=== PATIENT | male | born 1960 | race Caucasian/White ===

== ENCOUNTER 2019-12-12 16:01 | Inpatient (IN) | payer BC ==
[~2019-12-12] VITALS: Ht 170.2 cm; Wt 116.1 kg
--- NOTE | 2019-12-12 16:30 | NUR ---
BIB [facility] 89 FROM CLINIC, FELL ON HIS KNEES ON HIS WAY OUT OF THE CLINIC. PATIENT A/OX4, BREATHING EVEN AND UNLABORED, NO SOB NOTED. C/O FEELING WEAK. NEEDS ATTENDED, ATTACHED TO THE JAVA SECURITY ENGINEER.
[2019-12-12] MEDS ORDERED: ONDANSETRON HCL/PF 4 MG/2 ML VIAL IVP ONE (17:00)
[2019-12-12] MEDS ORDERED: IV NS 0.9% 1,000 ML BAG IV ONE (17:00)
[2019-12-12] MEDS ORDERED: MORPHINE SULFATE INJ 2 MG/ML DISP.SYRIN IM ONE (17:00)
[2019-12-12] MEDS ORDERED: ONDANSETRON HCL/PF 4 MG/2 ML VIAL ONE (17:18)
[2019-12-12] MEDS ORDERED: MORPHINE SULFATE INJ 2 MG/ML DISP.SYRIN ONE (17:19)
[2019-12-12] MEDS ORDERED: MORPHINE SULFATE INJ 4 MG/ML DISP.SYRIN ONE ×3 (17:19→21:23)
[2019-12-12] MEDS ORDERED: ONDA8TAB65 PO (17:29)
[2019-12-12] MEDS ORDERED: METH10TA2 PO (17:29)
[2019-12-12] MEDS ORDERED: PANT40TA4 PO (17:29)
[2019-12-12] MEDS ORDERED: CLON0.1T PO (17:29)
[2019-12-12] MEDS ORDERED: PREG150C46 PO (17:29)
[2019-12-12] MEDS ORDERED: TAMS-12 PO (17:29)
[2019-12-12 17:34] LABS: BASOPHILS % (AUTO) 0.4 % (0.0-2.0); EOSINOPHILS % (AUTO) 0.4 % (0.0-6.0); HEMATOCRIT 41 % (39-51); HEMOGLOBIN 13.2 g/dL (13.5-17.5); LYMPHOCYTES # (AUTO) 1.4 /CMM (0.8-4.8); MEAN CORPUSCULAR HGB CONC 32 g/dl (31.0-36.0); MEAN CORPUSCULAR VOLUME 77 fL (80-96); MONOCYTES # (AUTO) 0.7 /CMM (0.1-1.30); MONOCYTES % (AUTO) 5.8 % (2.0-12.0); NEUTROPHILS # (AUTO) 9.2 /CMM (1.8-8.9); NEUTROPHILS % (AUTO) 81.4 % (43.0-81.0); PLATELET COUNT (AUTO) 189 /CMM (150-450); RED BLOOD CELL COUNT(AUTO) 5.28 MIL/uL (4.5-6.0); WHITE BLOOD COUNT (AUTO) 11.3 K/uL (4.3-11.0)
--- NOTE | 2019-12-12 17:34 | NUR ---
IV LINE ESTABLISHED BLOOD DRAWN AND SENT TO LAB.
--- NOTE | 2019-12-12 17:45 | NUR ---
patient unable to provide a urine sample at this time.
[2019-12-12 17:48] LABS: CALCIUM, SERUM 9.5 mg/dL (8.5-10.1); CREATININE 0.8 mg/dL (0.6-1.3); POTASSIUM 3.6 mmol/L (3.5-5.1)
[2019-12-12 17:54] LABS: ALBUMIN 3.6 g/dL (3.4-5.0); BILIRUBIN,DIRECT 0.1 mg/dL (0.0-0.2); BILIRUBIN,TOTAL 0.5 mg/dL (0.2-1.0); TOTAL PROTEIN, SERUM 9.1 g/dL (6.4-8.2)
--- NOTE | 2019-12-12 18:20 | NUR ---
URINE SAMPLE SENT TO LAB.
[2019-12-12 18:33] LABS: APPEARANCE,URINE Clear (CLEAR); BILIRUBIN,URINE SMALL (NEGATIVE); BLOOD, URINE Negative Ery/uL (NEGATIVE); COLOR,URINE Yellow (YELLOW); KETONES,URINE 40 (NEGATIVE); LEUKOCYTE ESTERASE ,URINE Negative (NEGATIVE); NITRITE, URINE Negative (NEGATIVE); PH,URINE 6.5 (5.0-8.0); PROTEIN,URINE 30 mg/dl (NEGATIVE); UGLUCOSE Negative (NEGATIVE); UROBILINOGEN,URINE 0.2 EU/dL (0.2)
--- NOTE | 2019-12-12 19:10 | NUR ---
ENDORSED TO JERAMIE LEMA FOR ANGEILCA.
[2019-12-12 19:21] LABS: BACTERIA,URINE Rare /HPF (None Seen); MUCUS,URINE Few /LPF (None Seen); RBC,URINE 0-2 /HPF (0-2); SQUAMOUS EPITHELIAL CELL,UR Few /HPF (None Seen); URINE AMORPHOUS URATE Few /HPF (None Seen)
--- NOTE | 2019-12-12 19:43 | NUR ---
HORTENCIA SENT TO LAB
[2019-12-12] MEDS ORDERED: MORPHINE SULFATE INJ 2 MG/ML DISP.SYRIN IV ONE ×2 (20:00→21:30)
--- NOTE | 2019-12-12 20:12 | NUR ---
PT SHAKING, STATING HE IS IN PAIN.
--- NOTE | 2019-12-12 20:21 | NUR ---
TOOK OVER PT CARE. PT AAOX4. PLACED ON MONITOR AND PULSE OX. VSS. PT MEDICATED, GIVEN 4M IVP MORPHINE. GIVEN BLANKETS AND KEPT COMFORTABLE.
--- NOTE | 2019-12-12 20:58 | NUR ---
314-2 [facility]
--- NOTE | 2019-12-12 21:34 | NUR ---
Benjamin crenshaw in [facility] - 12/12/19 at 2135 by HARLEY REPORT GIVEN TO CARTER SANDS ANGELICA
--- NOTE | 2019-12-12 21:34 | NUR ---
Benjamin crenshaw in [facility] - 12/12/19 at 2135 by HARLEY PT TRANSFERED
[2019-12-12 22:10] VITALS: BP 138/85
--- NOTE | 2019-12-12 22:30 | NUR ---
ms elisabet initial notes admit a patient from ER via gurney accompanied by pyrotechnician. pt is awake and alert able to ambulate with some assist. No signs of any acute distress noted. aware where he at .he also able to provide information about himself but refused to changed his clothes at this time and to check his body for skin assessment. he did sustain an abrasion to his knee but otherwise denies any injury associated with this event. He denies hitting his head or passing out . denies any wound on his body but he mention he had dermetatis before. educate him how to used the call light system . kept him warm and comfortable at all times. will continue monitoring place call light at reach.
[2019-12-13] MEDS: IV NS 0.9% 1,000 ML IV PRN ×2 (01:00→14:58)
[2019-12-13] MEDS ORDERED: MAGNESIUM HYDROXIDE 30 ML UDC PO PRN (01:00)
[2019-12-13] MEDS ORDERED: Z GUARD REMEDY 2 OZ OINT TP PRN (01:00)
[2019-12-13] MEDS ORDERED: ACETAMINOPHEN 325 MG TABLET PO PRN (01:00)
[2019-12-13] MEDS ORDERED: ONDANSETRON HCL/PF 4 MG/2 ML VIAL IVP PRN (01:00)
[2019-12-13] MEDS ORDERED: MAG HYDROX/AL HYDROX/SIMETH 30 ML UDC PO PRN (01:00)
--- NOTE | 2019-12-13 01:03 | NUR ---
manager retail sales notes pt complaint of generalized pain 9/10 morphine administered by another nurse as ordered dacia IVP . pt aware of possible side effect. will continue monitoring.
[2019-12-13] MEDS: MORPHINE SULFATE INJ 2 MG/ML DISP.SYRIN IV PRN ×5 (01:08→19:52)
--- NOTE | 2019-12-13 01:38 | NUR ---
ms elisabet notes pt called and asking for another morphine ,I explained to him that he just had his pain meds and the next one will be 05 am then patient insisted if he can have his sleep medication . miky po given as ordered.
[2019-12-13] MEDS ORDERED: CLONIDINE HCL 0.1 MG TABLET PO PRN (02:00)
[2019-12-13] MEDS: ZOLPIDEM TARTRATE 5 MG TABLET PO PRN (02:00)
--- NOTE | 2019-12-13 03:00 | NUR ---
ms elisabet notes pt sleeping at this time without any distress noted. IVF still infusing. kept him warm and comfortable at all times. will continue monitoring. call light at reach.
--- NOTE | 2019-12-13 05:05 | NUR ---
ms eilsabet notes patient woke up and called and asking for his pain meds. generalized pain as he stated. no N/V noted. vital signs taken before pain meds given as ff. BP 144/78, pulse 101, resp 20 amd temp 98.2 Spoke to him that his pain meds will administer by another nurse as ordered. pt understood well.
[2019-12-13] MEDS: PANTOPRAZOLE 40 MG TABLET.DR PO SCH ×2 (07:02→08:21)
--- NOTE | 2019-12-13 07:30 | NUR ---
RECEIVED PT. ALERT AND ORIENTED X3.SKIN WARM AND DRY.OFTEN WHEN GOING INTO PT. RM. HE IS EXPERIENCING GENERALIZED SHAKING,ESPECIALLY ARMS AND HANDS.
--- NOTE | 2019-12-13 07:36 | NUR ---
ms electrical equipment technician closing notes pt resting at this time after pain meds given . no signs of any acute distress noted. no sob noted. 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 noticed he's liked watching the clock for his pain medication and he insisted that he wants pain medication like every 30 minutes, but everytime i went to his room his eyes closed and not in any discomfort or any distress. all due meds given. kept him warm and comfortable at all times. endorse to am nurse for continuity of care.
[2019-12-13 08:00] VITALS: BP 127/74
[2019-12-13] MEDS: TAMSULOSIN 0.4 MG CAP.SR.24H PO SCH (08:21)
[2019-12-13] MEDS: METHADONE HCL 10 MG TABLET PO SCH ×3 (08:21→18:17)
[2019-12-13] MEDS ORDERED: SUMATRIPTAN SUCCINATE 100 MG TABLET PO ONE ×3 (09:30→15:30)
--- NOTE | 2019-12-13 14:00 | NUR ---
REQUESTING PAIN MEDS OFTEN.
[2019-12-13 16:00] VITALS: BP 127/74
--- NOTE | 2019-12-13 18:00 | NUR ---
HAD IMITREX X2 FOR HEADACHE,TYLENOL X1 FOR HEADACHE,MORPHINE X 2 FOR LEG AND BACK PAIN.
--- NOTE | 2019-12-13 18:30 | NUR ---
AWAITING 3RD MORPHINE INJECTION FOR THIS SHIFT.
--- NOTE | 2019-12-13 20:00 | NUR ---
MS RN OPENING NOTES RECEIVED PATIENT IN BED, AWAKE, CONSCIOUS, COOPERATIVE, A/O X3, BREATHING AT ROOM AIR, UNLABORED BREATHING, NO SIGNS OF RESPIRATORY DISTRESS, RAC #20G NS @ 75ML/HR, SIDE RAILS UP.
[2019-12-13 20:22] VITALS: BP 131/75
[2019-12-14] MEDS: MORPHINE SULFATE INJ 2 MG/ML DISP.SYRIN IV PRN ×4 (00:11→14:01)
--- NOTE | 2019-12-14 00:11 | NUR ---
MS RN NOTES MORPHINE 4 MG GIVEN VIA IV. BP- 129/77, HR- 76, O2 SAT- 97%.
[2019-12-14] MEDS: ZOLPIDEM TARTRATE 5 MG TABLET PO PRN (01:16)
--- NOTE | 2019-12-14 01:16 | NUR ---
MS RN NOTES AMBIEN 5 MG PO GIVEN. BP- 137/81, HR- 101.
[2019-12-14] MEDS: IV NS 0.9% 1,000 ML IV PRN (01:30)
[2019-12-14 06:26] LABS: BASOPHILS % (AUTO) 0.4 % (0.0-2.0); EOSINOPHILS % (AUTO) 1.6 % (0.0-6.0); HEMATOCRIT 36 % (39-51); HEMOGLOBIN 11.6 g/dL (13.5-17.5); LYMPHOCYTES # (AUTO) 2.3 /CMM (0.8-4.8); LYMPHOCYTES % (AUTO) 23.6 % (20.0-44.0); MEAN CORPUSCULAR HGB CONC 32 g/dl (31.0-36.0); MEAN CORPUSCULAR VOLUME 78 fL (80-96); MONOCYTES # (AUTO) 0.6 /CMM (0.1-1.30); NEUTROPHILS # (AUTO) 6.5 /CMM (1.8-8.9); NEUTROPHILS % (AUTO) 68.4 % (43.0-81.0); PLATELET COUNT (AUTO) 146 /CMM (150-450); RED BLOOD CELL COUNT(AUTO) 4.66 MIL/uL (4.5-6.0); WHITE BLOOD COUNT (AUTO) 9.5 K/uL (4.3-11.0)
[2019-12-14 06:40] LABS: ALBUMIN 2.9 g/dL (3.4-5.0); BILIRUBIN,TOTAL 0.4 mg/dL (0.2-1.0); CALCIUM, SERUM 8.6 mg/dL (8.5-10.1); CREATININE 0.8 mg/dL (0.6-1.3); MAGNESIUM 2.1 mg/dL (1.8-2.4); PHOSPHORUS 2.9 mg/dL (2.5-4.9); POTASSIUM 3.6 mmol/L (3.5-5.1); TOTAL PROTEIN, SERUM 7.5 g/dL (6.4-8.2)
--- NOTE | 2019-12-14 06:51 | NUR ---
MS RN CLOSING NOTES ENDORSED PATIENT IN BED, AWAKE, CONSCIOUS, COOPERATIVE, A/O X3, BREATHING AT ROOM AIR, UNLABORED BREATHING, NO SIGNS OF RESPIRATORY DISTRESS, RAC #20G NS @ 75ML/HR, DUE MEDS GIVEN, PAIN MED GIVEN, SIDE RAILS UP FOR SAFETY.
[2019-12-14 06:56] LABS: THYROID STIMULATING HORMONE 4.459 uIU/mL (0.358-3.74)
--- NOTE | 2019-12-14 07:25 | NUR ---
MS RN OPENING NOTES BEDSIDE ENDORSEMENT DONE. RECEIVED PATIENT IN BED RESTING, AWAKE AND VERBALLY RESPONSIVE, A/O X3. NOT IN ACUTE DISTRESS AND ABLE TO MAKE NEEDS KNOWN. BREATHING EVEN AND UNLABORED ON AMBIENT AIR. NO COMPLAINT OF PAIN AT THIS TIME BUT MENTIONED TO RN THAT HE HAS HX OF MIGRAINE. WITH PERIPHERAL LINE ON RAC #20G, INTACT AND PATENT, NO S/SX OF INFILTRATION. IVF OF NS @ 75ML/HR, INFUSING WELL. CALL LIGHT PLACED NEXT TO PATIENT AND INSTRUCTED TO USE CALL LIGHT FOR STAFF STAFF ASSISTANCE. WILL CONTINUE TO MONITOR.
[2019-12-14 08:35] VITALS: BP 136/83
[2019-12-14] MEDS: TAMSULOSIN 0.4 MG CAP.SR.24H PO SCH (08:46)
[2019-12-14] MEDS: METHADONE HCL 10 MG TABLET PO SCH ×2 (08:47→12:22)
--- NOTE | 2019-12-14 09:54 | NUR ---
RN NOTES/PAIN MANAGEMENT PT NOTED RESTLESS AND GRIMACING IN PAIN. PT C/O RIGHT LEG AND BACK PAIN WITH SCALE OF 9/10. PRN MORPHINE 4MG/2ML IVP ADMINISTERED AT 0949. WILL CONTINUE TO MONITOR AND REASSESS PT.
--- NOTE | 2019-12-14 15:04 | NUR ---
MS RETAIL BRAND AMBASSADOR NOTES PATIENT DISCHARGED HOME IN STABLE CONDITION. A/O X3. NOT IN ACUTE DISTRESS AT THIS TIME, PATIENT WAS SEEN BY KESHAV HOLLINS COMPLIANCE MGR WITH ORDER FOR DISCHARGE TO HOME. V/S TAKEN, STABLE AND RECORDED. ALL BELONGINGS ACCOUNTED FOR AND SIGNED FORM BY PT. PERIPHERAL LINE ON RAC REMOVED W/ NO BLEEDING NOTED, DRY DRESSING APPLIED. NAME ARMBAND REMOVED. DISCHARGE INSTRUCTIONS AND EDUCATION PROVIDED TO PATIENT AND VERBALIZED UNDERSTANDING. PATIENT'S PARTNER, NANDA, REQUESTED FOR THE COVID TEST RESULT BE FAXED; TRIED X3 BUT FAX NUMBER IS NOT WORKING. EXPLAINED TO NANDA AND VERBALIZED UNDERSTANDING. HARD COPY OF COVID TEST RESULT PROVIDED TO PATIENT ALONG WITH DISCHARGE INSTRUCTIONS AND HOME MEDICATIONS RELEASED BY PHARMACY. PT LEFT UNIT VIA WHEELCHAIR @ [id number] ACCOMPANIED BY ME TO [facility]. NANDA, PATIENT'S PARTNER, IS WAITING AT THE [facility] TO AIRFRAME AND POWER PLANT MECHANIC THE PATIENT AND WILL TAKE PT'S HOME. CHARGE NURSE AWARE OF DISCHARGE.
== END 2019-12-14 17:15 | disposition home or self-care (01) | DRG 897 ==
LOC: ER 16:03 → MED 21:12
PROVIDERS: ADMIT Hospitalist; ATTEND Nurse Practitioner Acute Care
DX: F11.23 Opioid dependence with withdrawal (principal); I10 Essential (primary) hypertension; T40.2X5A Adverse effect of other opioids, initial encounter; Y92.89 Other specified places as the place of occurrence of the external cause; K21.9 Gastro-esophageal reflux disease without esophagitis; F41.9 Anxiety disorder, unspecified; N40.0 Benign prostatic hyperplasia without lower urinary tract symptoms; G43.909 Migraine, unspecified, not intractable, without status migrainosus; G25.81 Restless legs syndrome; Z87.11 Personal history of peptic ulcer disease; Z87.442 Personal history of urinary calculi; E11.9 Type 2 diabetes mellitus without complications
CPT/HCPCS: 36415; 76770-TC; 80048-TC; 80053-TC; 80061-TC; 80076-TC; 81000-TC; 83690-TC; 83735-TC; 84100-TC; 84443-TC; 85025-TC; 85730-TC; 87081-TC; C9803-CS; G0378; J2270; J2405; J7030